=== PATIENT | male | born 1980 | race Caucasian/White ===

== ENCOUNTER 2020-05-05 07:25 | Outpatient (CLI) | payer BC, SELFPAY ==
--- NOTE | 2020-05-05 07:53 | ECHO_ITS ---
Patient Info Name: Frank Vega Age: 40 years : 1980 Gender: Male Ht: 76 in Wt: 300 lbs BSA: 2.75 m2 HR: 64 bpm BP: 147 / 97 mmHg Technical Quality: Fair Exam Date: 05/05/2020 7:56 AM Exam Location: [facility] Patient Status: Outpatient Admit Date: 05/05/2020 Staff Ordering Physician: Fior Mclaughlin MD Clinical Case Manager: Juancarlos Day RDCS, RT Attending Provider: Fior Mclaughlin MD Referring Physician: Arnoldo YEE; Exam Type: CA echo doppler color flow Study Info Indications R06.02 - Shortness of breath Complete two-dimensional, color flow and Doppler transthoracic echocardiogram is performed. Summary 1. Left ventricular systolic function is preserved, estimated at 50-55%. 2. Left ventricular chamber dimension is moderately enlarged. 3. The left ventricular diastolic function is normal. 4. E/e' 6 is not elevated. 5. There is trace pulmonic regurgitation. 6. Dilated inferior vena cava with >50% collapse upon inspiration consistent with elevated right atrial pressure, 10 mmHg. Left Ventricle E/e' 6 is not elevated. Left ventricular systolic function is preserved, estimated at 50-55%. Left ventricular chamber dimension is moderately enlarged. The left ventricular diastolic function is normal. Right Ventricle Right ventricular chamber dimension is normal. Right ventricular systolic function is normal. Left Atria Left atrial chamber dimension is normal. Right Atria Right atrial chamber dimension is normal. Aortic Valve The aortic valve is trileaflet. There is no aortic valve stenosis. There is no aortic valve regurgitation. Pulmonic Valve There is trace pulmonic regurgitation. Mitral Valve There is no mitral valve stenosis. There is no mitral valve regurgitation. Tricuspid Valve There is no tricuspid valve regurgitation. Pericardium/Pleural There is no pericardial effusion. Inferior Vena Cava Dilated inferior vena cava with >50% collapse upon inspiration consistent with elevated right atrial pressure, 10 mmHg. Aorta The aortic root size at the sinus of Valsalva is normal. Left Ventricular Outflow Tract Name Value Normal LVOT 2D LVOT Diameter 2.3 cm LVOT Doppler LVOT Peak Gradient 2 mmHg LVOT Mean Gradient 1 mmHg LVOT VTI 16 cm LVOT VTI/AV VTI Ratio 0.9 LVOT Stroke Volume 67 ml LVOT CO 4.8 l/min LVOT CI 1.7 l/min/m2 Mitral Valve Name Value Normal MV Doppler MV Decel [place] 319 cm/s2 MV PHT 67 ms MV Area (PHT) 3.3 cm2 4.0-5.0 MV Diastolic Function
== END 2020-05-05 07:26 | disposition home or self-care (01) ==
LOC: ANHCARD 07:29
PROVIDERS: PCP Family Medicine; Visit Provider Internal Medicine Critical Care Medicine
DX: R06.02 Shortness of breath (principal)
CPT/HCPCS: 93306

== ENCOUNTER 2021-10-24 16:46 | Outpatient (CLI) | payer OTHER, SELFPAY ==
--- NOTE | ~2021-10-24 | XR_ITS ---
EXAMINATION: XR shoulder LT min 2V INDICATION: Left shoulder pain TECHNIQUE: Four views of the right shoulder are submitted. COMPARISON: None FINDINGS: Normal alignment. No fracture. There is mild osteoarthritis at the glenohumeral and acromio clavicular joints. Soft tissues are unremarkable. IMPRESSION: 1. Mild osteoarthritis. Reviewed, dictated and finalized at location A. 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 Mild osteoarthritis.
== END 2021-10-24 16:47 | disposition home or self-care (01) ==
LOC: ANHIMG 16:50
PROVIDERS: PCP Family Medicine; Visit Provider Nurse Practitioner Family
DX: M19.012 Primary osteoarthritis, left shoulder (principal)
CPT/HCPCS: 73030

== ENCOUNTER 2021-11-01 12:24 | Outpatient (CLI) | payer OTHER, SELFPAY ==
--- NOTE | ~2021-11-01 | MR_ITS ---
EXAMINATION: MR shoulder LT wo con DATE: 11/01/2021 13:17 INDICATION: Left shoulder pain. TECHNIQUE: Magnetic resonance imaging (MRI) of the left shoulder was performed without intravenous co ntrast. Sequences included axial PD-weighted FS FSE, coronal oblique PD-weighted FS FSE and T2-weight ed FS FSE, and sagittal oblique T2-weighted FS FSE and T1-weighted FSE. COMPARISON: Left shoulder radiographs 10/24/2021 FINDINGS: Coracoacromial arch: The acromion undersurface is flat in morphology (type I). There is moderate acromioclavicular joint o steoarthritis including subchondral edema in the acromion and distal clavicle and soft tissue edema a round the joint capsule. There is mild subacromial/subdeltoid bursitis. Rotator cuff: There is mild supraspinatus and infraspinatus tendinopathy. Teres minor tendon is normal. Subscapular is tendon is normal. No tear. There is no asymmetric fatty atrophy of the rotator cuff muscle bellies . Biceps tendon and glenoid labrum: Biceps tendon is in bicipital groove. Intra-articular biceps tendon is normal. The glenoid labrum is normal. Fluid: There is no glenohumeral joint effusion. Bones/cartilage: Glenoid cartilage is normal. Humeral head cartilage is normal. IMPRESSION: 1. Moderate acromioclavicular joint osteoarthritis. 2. Mild rotator cuff tendinopathy. No tear. 3. Mild subacromial/subdeltoid bursitis. Reviewed, dictated and finalized at location A. 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
== END 2021-11-01 12:25 | disposition home or self-care (01) ==
LOC: ANHIMG 12:32
PROVIDERS: PCP Family Medicine; Visit Provider Nurse Practitioner Family
DX: M19.012 Primary osteoarthritis, left shoulder (principal); M75.52 Bursitis of left shoulder; R29.898 Other symptoms and signs involving the musculoskeletal system
CPT/HCPCS: 73221